=== PATIENT | female | born 1990 | race Two or more races ===

== ENCOUNTER → 2016-04-22 | Outpatient (CLI) | payer OTHER ==
[~2016-04-22] MED LIST: PREN29TA PO
[2016-04-22 09:40] LABS: HEMATOCRIT 40.4 % (35.0-46.0); MEAN CELL VOLUME 76.8 FL (80.0-100.0); MEAN CORPUSCULAR HEMOGLOBIN 24.6 PG (27.0-34.0); MEAN CORPUSCULAR HGB CONC 32.1 % (32.0-36.0); PLATELET COUNT 293 TH/MM3 (150-450); RED BLOOD COUNT 5.27 MIL/MM3 (4.00-5.30); RED CELL DISTRIBUTION WIDTH 14.9 % (11.6-17.2); WHITE BLOOD COUNT 11.3 TH/MM3 (4.0-11.0)
[2016-04-22 09:42] LABS: REVIEW FLAG FINAL
[2016-04-22 13:02] LABS: FOLLICLE STIMULATING HORMONE 1.2 mIU/mL; LUTEINIZING HORMONE 1.2 mIU/mL
[2016-04-22 13:12] LABS: HEMOGLOBIN A1a 1.6 %; HEMOGLOBIN A1b 1.5 %; HEMOGLOBIN LA1C 1.8 %; HEMOGLOBIN P3 3.6 %
[2016-04-22 13:23] LABS: RUBELLA IGG ANTIBODY 11.1 IU/mL (10.0-500.0); RUBELLA STATUS IMMUNE (IMMUNE)
[2016-04-22 14:20] LABS: HEPATITIS B SURFACE ANTIBODY 0.6 mIU/mL
[2016-04-22 17:02] LABS: RAPID PLASMA REAGIN SCREEN NON-REACTIVE (NON-REACTVE)
[2016-04-24 14:42] LABS: BIOAVAILABLE TESTOSTERONE 4.2 ng/dL (())
[2016-04-24 15:35] LABS: HEMOGLOBIN ELECTROPHORESIS ADULT NORMAL HGB
[2016-04-25 09:55] LABS: PROGESTERONE 7.1 ng/mL (())
== END ==
LOC: OLAB 08:19
DX: N97.9 Female infertility, unspecified (principal); E66.9 Obesity, unspecified; N92.5 Other specified irregular menstruation
CPT/HCPCS: 36415; 82627; 82670; 82947; 83001; 83002; 83020; 83036; 83498; 84144; 84146; 84402; 84403; 85027; 86317; 86592; 86762; 86787; 86803; 86850; 86900; 86901; 87340

== ENCOUNTER → 2016-07-25 | Outpatient (CLI) | payer OTHER ==
[2016-07-25 11:26] LABS: FRAGILE X(PROGENITY) SENT TO DR
[2016-07-25 11:32] LABS: HEMATOCRIT 42.6 % (35.0-46.0); MEAN CELL VOLUME 76.9 FL (80.0-100.0); MEAN CORPUSCULAR HEMOGLOBIN 24.4 PG (27.0-34.0); MEAN CORPUSCULAR HGB CONC 31.7 % (32.0-36.0); PLATELET COUNT 296 TH/MM3 (150-450); RED BLOOD COUNT 5.53 MIL/MM3 (4.00-5.30); RED CELL DISTRIBUTION WIDTH 16.4 % (11.6-17.2); WHITE BLOOD COUNT 11.9 TH/MM3 (4.0-11.0)
[2016-07-25 11:37] LABS: REVIEW FLAG FINAL
[2016-07-25 13:22] LABS: FERRITIN 19 NG/ML (8-252)
[2016-07-26 15:17] LABS: HEMOGLOBIN ELECTROPHORESIS ADULT NORMAL HGB
== END ==
LOC: OLAB 05-23 08:58
DX: N80.9 Endometriosis, unspecified (principal); N97.9 Female infertility, unspecified; E66.9 Obesity, unspecified; Z11.59 Encounter for screening for other viral diseases; Z11.9 Encounter for screening for infectious and parasitic diseases, unspecified; Z31.49 Encounter for other procreative investigation and testing; Z31.430 Encounter of female for testing for genetic disease carrier status for procreative management; Z13.79 Encounter for other screening for genetic and chromosomal anomalies
CPT/HCPCS: 81220; 81243; 81401; 82607; 82728; 82746; 83020; 83540; 85027

== ENCOUNTER → 2017-03-27 | Outpatient (CLI) | payer OTHER ==
[~2017-03-27] MED LIST changes: +BOOSINJ IM; +DIFL150T PO; +LOTR15T TOPICAL; +VITA500012 PO
[2017-03-27 09:09] LABS: AUTOMATED NEUTROPHIL # 6.3 TH/MM3 (1.8-7.7); BASOPHIL % 0.1 % (0.0-2.0); EOSINOPHIL # 0.3 TH/MM3 (0-0.4); EOSINOPHIL % 2.4 % (0.0-4.0); HEMATOCRIT 41.1 % (35.0-46.0); HEMO FLAGS DIFF FINAL; LYMPH % 30.7 % (9.0-44.0); LYMPHOCYTE # 3.3 TH/MM3 (1.0-4.8); MEAN CELL VOLUME 79.8 FL (80.0-100.0); MEAN CORPUSCULAR HEMOGLOBIN 25.9 PG (27.0-34.0); MEAN CORPUSCULAR HGB CONC 32.4 % (32.0-36.0); MONO % 7.4 % (0.0-8.0); NEUT % 59.4 % (16.0-70.0); PLATELET COUNT 287 TH/MM3 (150-450); RED BLOOD COUNT 5.15 MIL/MM3 (4.00-5.30); RED CELL DISTRIBUTION WIDTH 14.3 % (11.6-17.2); WHITE BLOOD COUNT 10.7 TH/MM3 (4.0-11.0)
[2017-03-27 14:08] LABS: ANION GAP 7 MEQ/L (5-15); AST (GOT) 8 U/L (15-37); BICARBONATE 24.9 MEQ/L (21.0-32.0); BLOOD UREA NITROGEN 9 MG/DL (7-18); CHLORIDE 106 MEQ/L (98-107); GLOMERULAR FILTRATION RATE 99 ML/MIN (>89); POTASSIUM 3.7 MEQ/L (3.5-5.1); SODIUM (NA) 138 MEQ/L (136-145)
[2017-03-27 14:19] LABS: ALKALINE PHOSPHATASE 70 U/L (45-117); ALT (GPT) 17 U/L (10-53); HDL CHOLESTEROL 39.3 MG/DL (40.0-60.0); LDL CHOLESTEROL 95 MG/DL (0-99); TOTAL BILIRUBIN ADULT 0.3 MG/DL (0.2-1.0)
[2017-03-27 17:00] LABS: HEMOGLOBIN A1a 1.2 %; HEMOGLOBIN A1b 1.7 %; HEMOGLOBIN Ao 84.9 %; HEMOGLOBIN LA1C 1.9 %; HEMOGLOBIN P3 3.7 %
== END ==
LOC: OLAB 07:53
PROVIDERS: ATTEND Nurse Practitioner Family
DX: B35.4 Tinea corporis (principal); R73.01 Impaired fasting glucose; R53.82 Chronic fatigue, unspecified; Z13.29 Encounter for screening for other suspected endocrine disorder
CPT/HCPCS: 80053; 80061; 82306; 83036; 84443; 85025